=== PATIENT | female | born 1955 | race Two or more races ===

== ENCOUNTER 2017-11-19 18:22 | Emergency (ER) | payer MEDICAID ==
[~2017-11-19] VITALS: Ht 162.6 cm; Wt 65.0 kg
[2017-11-19 22:30] VITALS: BP 147/95
[2017-11-19] MEDS ORDERED: ACETAMINOPHEN WITH CODEINE 300/30MG TABLET PO ONE (22:30)
== END 2017-11-19 22:51 | disposition home or self-care (01) ==
LOC: ER 18:22
DX: S60.212A Contusion of left wrist, initial encounter (principal); S70.12XA Contusion of left thigh, initial encounter; E78.00 Pure hypercholesterolemia, unspecified; J45.909 Unspecified asthma, uncomplicated; Z98.890 Other specified postprocedural states; W01.0XXA Fall on same level from slipping, tripping and stumbling without subsequent striking against object, initial encounter; Y93.89 Activity, other specified; Y92.89 Other specified places as the place of occurrence of the external cause
CPT/HCPCS: 72170; 73110; 99284